=== PATIENT | female | born 1990 | race Caucasian/White ===

== ENCOUNTER 2017-07-29 05:09 | Emergency (ER) | payer MEDICAID, OTHER ==
[~2017-07-29] VITALS: Ht 170.2 cm; Wt 82.0 kg
[2017-07-29 05:12] VITALS: Ht 170.2 cm; Wt 82.0 kg
--- NOTE | 2017-07-29 06:01 | ERA ---
ER Documentation Chief Complaint Date/Time DATE: 07/29/17 TIME: 05:58 Chief Complaint right ankle twisted while wearing heels, +ETOH HPI This is a 27-year-old female with a history of polysubstance abuse who is presenting with a right ankle injury. She reportedly went out last night and told her right ankle while wearing heels. She has pain in the lateral aspect of her ankle at this time. No swelling, no bruising. Pulses intact. Sensation intact. The patient is able to range her ankle despite pain. The patient endorses alcohol, marijuana and cocaine abuse. She reports a hostile living situation in her apartment and feels like she is going to hurt her building managers. She does not endorse suicidal ideation, but she does report poking herself with sharp objects to help with emotional pain. She states that she does not want to cut herself because it looks ugly, but she would if it did not cause scarring. She is required psychiatric inpatient evaluation in the past, and feels that she might benefit from psychiatric evaluation, because she feels like her life is currently spinning out of control. She has trouble sleeping because of the drugs she takes. She is easily distractible and irritable. She has guilty feelings about her drug use. Her energy level is labile. The patient denies feeling sick recently. The patient denies fever or chills. The patient has had no headache or vision changes. The patient denies lightheadedness or dizziness. The patient has had no chest pain or shortness of breath trouble breathing. The patient denies abdominal pain or changes to bowel movements or urination. The patient has had no focal deficits. The patient has had no weakness or numbness or tingling to the face or extremities. ROS All systems reviewed and are negative except as per history of present illness. Medications Home Meds Reported Medications Fluvoxamine Maleate* (Luvox*) 50 Mg Tab, 50 MG PO BID, TAB 07/29/17 Alprazolam* (Xanax*) 1 Mg Tab, 1 MG PO Q12H Y for ANXIETY, TAB 07/29/17 Dextroamphetamine-Amphetamine (Adderall) 30 Mg Tab, 30 MG PO BID, TAB 07/29/17 Allergies Allergies: Coded Allergies: No Known Allergy (Unverified , 07/29/17) PMhx/Soc History of Surgery: Yes Hx Neurological Disorder: No Hx Respiratory Disorders: No Hx Cardiac Disorders: No Hx Psychiatric Problems: Yes (ANXIETY, DEPRESSION, SELF HARMING BEHAVIOR) Hx Miscellaneous Medical Probl: Yes (DIABETES) Hx Alcohol Use: Yes Hx Substance Use: Yes (MARIJUANA, COCAINE) Hx Tobacco Use: Yes Smoking Status: Current every day smoker FmHx Family History: diabetes Physical Exam Vitals Vital Signs Date Time Temp Pulse Resp B/P Pulse Ox O2 Delivery O2 Flow Rate FiO2 07/29/17 09:57 87 18 112/78 98 Room Air 07/29/17 05:12 97.4 72 18 109/69 100 Physical Exam Const: No apparent distress, well-developed, well-nourished Head: Atraumatic Eyes: Normal Conjunctiva. Extraocular movements intact. ENT: Normal External Ears, Nose and Mouth. Neck: Full range of motion. ~ No meningismus. Resp: Clear to auscultation bilaterally Cardio: Regular rate and rhythm, no murmurs Abd: Soft, non tender, non distended. Normal bowel sounds Skin: No petechiae or rashes Back: No midline or flank tenderness Ext: No cyanosis, or edema. Right lateral ankle tenderness to the anterior portion of the lateral malleolus. Neur: Awake and alert, oriented 4. Cranial nerves intact. No facial droop. Normal strength and sensation in all extremities. Coordination with finger to nose normal. Psych: High-energy, distractible, irritable, flight of ideas, paranoid, impulsive, emotional lability Result Diagram: 07/29/17 0700 07/29/17 0700 Results 24 hrs Laboratory Tests Test 07/29/17 05:16 07/29/17 07:00 Bedside Glucose 94mg/dL White Blood Count 5.210^3/ul Red Blood Count 4.2110^6/ul Hemoglobin 13.6g/dl Hematocrit 39.5% Mean Corpuscular Volume 93.8fl Mean Corpuscular Hemoglobin 32.3pg Mean Corpuscular Hemoglobin Concent 34.4g/dl Red Cell Distribution Width 13.3% Platelet Count 80762^3/UL Mean Platelet Volume 11.6fl Neutrophils % 67.1% Lymphocytes % 23.9% Monocytes % 6.5% Eosinophils % 1.5% Basophils % 0.8% Nucleated Red Blood Cells % 0.0/100WBC Neutrophils # 3.510^3/ul Lymphocytes # 1.310^3/ul Monocytes # 0.310^3/ul Eosinophils # 0.110^3/ul Basophils # 0.010^3/ul Nucleated Red Blood Cells # 0.010^3/ul Urine Color YELLOW Urine Clarity SLIGHTLY CLOUDY Urine pH 5.0 Urine Specific [place] 1.014 Urine Ketones NEGATIVEmg/dL Urine Nitrite NEGATIVEmg/dL Urine Bilirubin NEGATIVEmg/dL Urine Urobilinogen NEGATIVEmg/dL Urine Leukocyte Esterase NEGATIVELeu/ul Urine Microscopic RBC 2/HPF Urine Microscopic WBC 3/HPF Urine Squamous Epithelial Cells FEW/HPF Urine Bacteria FEW/HPF Urine Mucus FEW/HPF Urine Hemoglobin NEGATIVEmg/dL Urine Glucose NEGATIVEmg/dL Urine Total Protein NEGATIVEmg/dl Sodium Level 143mmol/L Potassium Level 4.4mmol/L Chloride Level 107mmol/L Carbon Dioxide Level 24mmol/L Anion Gap 16 Blood Urea Nitrogen 9mg/dl Creatinine 0.66mg/dl Glucose Level 136mg/dl Calcium Level 9.2mg/dl Total Bilirubin 0.8mg/dl Direct Bilirubin 0.00mg/dl Indirect Bilirubin 0.8mg/dl Aspartate Amino Transf (AST/SGOT) 25IU/L Alanine Aminotransferase (ALT/SGPT) 26IU/L Alkaline Phosphatase 56IU/L Total Protein 8.1g/dl Albumin 4.7g/dl Globulin 3.40g/dl Albumin/Globulin Ratio 1.38 Salicylates Level < 1.0mg/dl Urine Opiates Screen Negative Acetaminophen Level < 10.0ug/ml Urine Barbiturates Negative Urine Amphetamines Screen Positive Urine Benzodiazepines Screen Negative Urine Cocaine Screen Negative Urine Cannabinoids Positive Ethyl Alcohol Level 193.0mg/dl Current Medications Medications (Trade) Dose Ordered Sig/Kate Route PRN Reason Start Time Stop Time Status Last Admin Dose Admin Sodium Chloride (NS) 1,000 ml @ 1,000 mls/hr Q1H STAT IV 07/29/17 06:20 07/29/17 07:19 DC 07/29/17 07:05 Thiamine HCl (Vitamin B1) 100 mg ONCE ONCE PO 07/29/17 12:00 07/29/17 12:01 Folic Acid (Folic Acid) 1 mg ONCE ONCE PO 07/29/17 12:00 07/29/17 12:01 Olanzapine (Zyprexa) 5 mg Q6 PRN PO Moderate Agitation 07/29/17 12:00 Procedures/MDM MDM The patient presents after right ankle injury. X-rays will be obtained, but I have low suspicion for fracture. The patient has very mild lateral anterior tenderness. She has no swelling or ecchymosis. There is a possibility of ligamentous injury, but I suspect it is mild. She is ambulatory. The patient also has symptoms that are concerning for psychosis. She does endorse being on multiple medications. This could be drug-induced. However, I am concerned given her history. A psychiatric workup will also be obtained. LABS The patient's blood work was obtained and reviewed. The patient seemed shows no leukocytosis or left shift. The patient is afebrile, and I do not suspect a systemic infection. The patient is not anemic today. The patient's platelet count is unremarkable. The patient's CMP shows no signs of metabolic or electrolyte abnormality. The patient has normal renal and hepatic function testing. Her salicylate, acetaminophen levels were negative. Her alcohol level was elevated at 193. The patient's UDS was positive for cocaine and amphetamines. IMAGING Ankle Xray FINDINGS: There is normal mineralization and alignment. No acute fracture or osseous lesion is identified. The joints are normal. The soft tissues are unremarkable. IMPRESSION: No evidence of fracture. Electronically viewed and signed by Ana Cardenas Physician on 07/29/2017 06: 51 TREATMENT/DISPOSITION The patient does not have an ankle fracture or dislocation. She does not have symptoms consistent with a fracture dislocation. She was provided an Raheem bandage for comfort. With respect to her psychiatric complaints, the patient was medically cleared. The tele-psychiatrist evaluated the patient and felt that the patient would benefit from inpatient admission to a psychiatric facility. I feel this is appropriate at this time. As per recommendations from the psychiatrist, the patient will be given thiamine and folate in the emergency department. She will be ordered Zyprexa 5 mg as needed every 6 hour for moderate agitation. A 5150 will be completed and a bed search will be initiated for transfer to a psychiatric facility. Departure Diagnosis: Primary Impression: Psychosis Qualified Code: F29 - Psychosis, unspecified psychosis type Additional Impression: Ankle injury Qualified Code: S99.911A - Injury of right ankle, initial encounter Condition: KAREN Daniel MD Jul 29, 2017 06:01
[2017-07-29] MEDS ORDERED: SOD CHLORIDE 0.9% 1,000 ML IV STA (06:20)
--- NOTE | 2017-07-29 06:52 | RADRPT ---
PROCEDURE: XR Right Ankle. CLINICAL INDICATION: Trauma TECHNIQUE: AP, oblique and lateral views of the right ankle were performed. COMPARISON: None. FINDINGS: There is normal mineralization and alignment. No acute fracture or osseous lesion is identified. The joints are normal. The soft tissues are unremarkable. IMPRESSION: No evidence of fracture. Physician Radha Date Time Electronically viewed and signed by Physician Radha on 07/29/2017 06:51 CS/
[2017-07-29] MEDS ORDERED: ADDE30 PO (07:23)
[2017-07-29] MEDS ORDERED: ALPR1TAB2 PO (07:24)
[2017-07-29] MEDS ORDERED: BLVX50T PO (07:28)
[2017-07-29 07:58] LABS: BASOPHILS % 0.8 % (0.0-2.0); EOSINOPHILS # 0.1 10^3/ul (0.0-0.5); EOSINOPHILS % 1.5 % (0.0-7.0); HEMATOCRIT 39.5 % (37.0-47.0); HEMOGLOBIN 13.6 g/dl (12.0-16.0); LYMPHOCYTES # 1.3 10^3/ul (0.8-2.9); LYMPHOCYTES % 23.9 % (15.0-51.0); MEAN CORPUSCULAR HEMOGLOBIN 32.3 pg (29.0-33.0); MEAN CORPUSCULAR HGB CONC 34.4 g/dl (32.0-37.0); MEAN CORPUSCULAR VOLUME 93.8 fl (82.0-101.0); MEAN PLATELET VOLUME 11.6 fl (7.4-10.4); MONOCYTE # 0.3 10^3/ul (0.3-0.9); MONOCYTES % 6.5 % (0.0-11.0); NEUTROPHIL # 3.5 10^3/ul (1.6-7.5); NEUTROPHILS % 67.1 % (39.0-77.0); PLATELET COUNT 209 10^3/UL (140-415); RED BLOOD COUNT 4.21 10^6/ul (4.20-5.40); RED CELL DISTRIBUTION WIDTH 13.3 % (11.5-14.5); WHITE BLOOD COUNT 5.2 10^3/ul (4.8-10.8)
[2017-07-29 08:12] LABS: ADD UMIC NO; UR ASCORBIC ACID 20 mg/dL (NEGATIVE); UR BACTERIA FEW /HPF (NONE SEEN); UR BILIRUBIN (Dip) NEGATIVE (NEGATIVE); UR BLOOD (Dip) NEGATIVE (NEGATIVE); UR CLARITY SLIGHTLY CLOUDY (CLEAR); UR COLOR YELLOW (YELLOW); UR GLUCOSE (Dip) NEGATIVE (NEGATIVE); UR KETONES (Dip) NEGATIVE (NEGATIVE); UR LEUKOCYTE ESTERASE (Dip) NEGATIVE Leu/ul (NEGATIVE); UR MUCUS FEW /HPF (NONE SEEN); UR NITRITE (Dip) NEGATIVE (NEGATIVE); UR RBC 2 /HPF (0-5); UR SPECIFIC GRAVITY (Dip) 1.014 (1.003-1.030); UR SQUAMOUS EPITHELIAL CELL FEW /HPF (FEW); UR TOTAL PROTEIN (Dip) NEGATIVE (NEGATIVE); UR UROBILINOGEN (Dip) NEGATIVE (NEGATIVE)
[2017-07-29 08:19] LABS: ALANINE AMINOTRANSFERASE 26 IU/L (13-69); ALBUMIN 4.7 g/dl (3.3-4.9); ALBUMIN/GLOBULIN RATIO 1.38; ALKALINE PHOSPHATASE 56 IU/L (42-121); ANION GAP 16 (8-16); ASPARTATE AMINO TRANSFERASE 25 IU/L (15-46); BILIRUBIN,INDIRECT 0.8 mg/dl (0-1.1); BILIRUBIN,TOTAL 0.8 mg/dl (0.2-1.3); BLOOD UREA NITROGEN 9 mg/dl (7-20); CALCIUM 9.2 mg/dl (8.4-10.2); CARBON DIOXIDE 24 mmol/L (21-31); CHLORIDE 107 mmol/L (97-110); CREATININE 0.66 mg/dl (0.44-1.00); GLUCOSE 136 mg/dl (70-220); POTASSIUM 4.4 mmol/L (3.5-5.1); SODIUM 143 mmol/L (135-144); TOTAL PROTEIN 8.1 g/dl (6.1-8.1)
[2017-07-29 08:30] LABS: CANNABINOIDS Positive (NEGATIVE)
[2017-07-29 08:40] LABS: BARBITURATES Negative (NEGATIVE); BENZODIAZEPINES Negative (NEGATIVE); COCAINE Negative (NEGATIVE); OPIATES Negative (NEGATIVE)
[2017-07-29 08:48] LABS: ACETAMINOPHEN < 10.0 ug/ml (10.0-30.0); SALICYLATE < 1.0 mg/dl (5.0-30.0)
--- NOTE | 2017-07-29 11:30 | PSY ---
Date/Time of Note Date/Time of Note DATE: 07/29/17 TIME: 14:25 Psychiatric Subjective Eval Consent Pt consented to telemedicine: Yes Subjective Evaluation Patient location: emergency Chief Complaint: right ankle twisted while wearing heels, +ETOH History of present illness HPI: The patient is a 27 yo female with ho polysubstance abuse, bibems drunk, intoxicated, for ankle injury but also asked for psych eval and was very odd, disorganized, and had flight of ideas. Indicating she wanted to physically harm her building managers. MD spoke with pt. Very disorganized, flight of ideas. Napoleon drug use though utox was positive. Denies si and hi. When asked about what she said about managers she indicated that she meant that she would jens them only, though did clearly endorse concern about how they were treating her. to previous staff was very odd, poking her feet. Has not endorsed si. Past Psych Hx: unclear given pt's psychosis PMHx: ankle injury meds: unclear given pt's psychosis All: nkda MSE: bizarre, distracted, pressured speech, very tangential, disorganized, possibly paranoid about building managers, denies si/hi Imp: 27 yo female very psychotic s/p drinking etoh, unclear baselie and unclear circumstances of presentation -for now 5150 in ED until parellel hx from family member -etoh w/d precautions -uhcg -daily thiamine 100mg po folate 1mg po mvi -for moderate agitation zyprexa 5mg po prn for severe agitation haldol 5mg im ativan 2mg im cogentin 1mg im prn Medical history Problems Medical Problems: (1) Ankle injury Status: Acute Allergies: Coded Allergies: No Known Allergy (Unverified , 07/29/17) Psychiatric Objective Eval Mental Status Examination: Laboratory Results Laboratory Tests Test 07/29/17 05:16 07/29/17 07:00 Bedside Glucose 94mg/dL White Blood Count 5.210^3/ul Red Blood Count 4.2110^6/ul Hemoglobin 13.6g/dl Hematocrit 39.5% Mean Corpuscular Volume 93.8fl Mean Corpuscular Hemoglobin 32.3pg Mean Corpuscular Hemoglobin Concent 34.4g/dl Red Cell Distribution Width 13.3% Platelet Count 47564^3/UL Mean Platelet Volume 11.6fl Neutrophils % 67.1% Lymphocytes % 23.9% Monocytes % 6.5% Eosinophils % 1.5% Basophils % 0.8% Nucleated Red Blood Cells % 0.0/100WBC Neutrophils # 3.510^3/ul Lymphocytes # 1.310^3/ul Monocytes # 0.310^3/ul Eosinophils # 0.110^3/ul Basophils # 0.010^3/ul Nucleated Red Blood Cells # 0.010^3/ul Urine Color YELLOW Urine Clarity SLIGHTLY CLOUDY Urine pH 5.0 Urine Specific [place] 1.014 Urine Ketones NEGATIVEmg/dL Urine Nitrite NEGATIVEmg/dL Urine Bilirubin NEGATIVEmg/dL Urine Urobilinogen NEGATIVEmg/dL Urine Leukocyte Esterase NEGATIVELeu/ul Urine Microscopic RBC 2/HPF Urine Microscopic WBC 3/HPF Urine Squamous Epithelial Cells FEW/HPF Urine Bacteria FEW/HPF Urine Mucus FEW/HPF Urine Hemoglobin NEGATIVEmg/dL Urine Glucose NEGATIVEmg/dL Urine Total Protein NEGATIVEmg/dl Sodium Level 143mmol/L Potassium Level 4.4mmol/L Chloride Level 107mmol/L Carbon Dioxide Level 24mmol/L Anion Gap 16 Blood Urea Nitrogen 9mg/dl Creatinine 0.66mg/dl Glucose Level 136mg/dl Calcium Level 9.2mg/dl Total Bilirubin 0.8mg/dl Direct Bilirubin 0.00mg/dl Indirect Bilirubin 0.8mg/dl Aspartate Amino Transf (AST/SGOT) 25IU/L Alanine Aminotransferase (ALT/SGPT) 26IU/L Alkaline Phosphatase 56IU/L Total Protein 8.1g/dl Albumin 4.7g/dl Globulin 3.40g/dl Albumin/Globulin Ratio 1.38 Salicylates Level < 1.0mg/dl Urine Opiates Screen Negative Acetaminophen Level < 10.0ug/ml Urine Barbiturates Negative Urine Amphetamines Screen Positive Urine Benzodiazepines Screen Negative Urine Cocaine Screen Negative Urine Cannabinoids Positive Ethyl Alcohol Level 193.0mg/dl WILL CARRANZA Jul 29, 2017 11:30
[2017-07-29] MEDS ORDERED: FOLIC ACID 1 MG TAB PO ONE (12:00)
[2017-07-29] MEDS ORDERED: THIAMINE 100 MG TAB PO ONE (12:00)
[2017-07-29] MEDS ORDERED: OLANZAPINE 5 MG TAB PO PRN (12:00)
[2017-07-29] MEDS ORDERED: ONDANSETRON (ODT) 4 MG TAB ODT ONE (15:16)
[2017-07-29] MEDS ORDERED: ONDANSETRON (ODT) 4 MG TAB ODT STA (15:17)
[2017-07-29 20:30] VITALS: BP 98/53; PULSE 62; RESP 16; TEMP 98.3
== END 2017-07-29 20:32 ==
LOC: E/R 05:09
DX: F29 Unspecified psychosis not due to a substance or known physiological condition (principal); F17.210 Nicotine dependence, cigarettes, uncomplicated; E11.9 Type 2 diabetes mellitus without complications; X50.9XXA Other and unspecified overexertion or strenuous movements or postures, initial encounter; Y92.9 Unspecified place or not applicable
CPT/HCPCS: 36415; 73610; 80053; 80306; 80307; 81001; 82962; 84703; 85025; J7030; Z7502; Z7610; 81003